=== PATIENT | male | born 1980 | race Caucasian/White ===

== ENCOUNTER → 2017-08-31 | Outpatient (CLI) | payer OTHER ==
--- NOTE | 2017-08-31 15:39 | DIAGNOSTIC IMAGING REPORT ---
ABDOMEN ULTRASOUND FOR HERNIA CLINICAL HISTORY: K40.90 Direct inguinal hernia. Right inguinal pain. COMPARISON STUDY: None. FINDINGS: There is a small fat-containing nonreducible right inguinal hernia. There is no bowel or fluid identified within the hernia sac. Multiple benign-appearing right inguinal lymph nodes are noted. IMPRESSION: A small fat-containing nonreducible right inguinal hernia. Electronically signed by: Jin Gonzalez M.D. 08/31/2017 3:38 PM Dictated Date/Time: 08/31/2017 3:37 PM
== END | disposition home or self-care (01) ==
LOC: C.ULTR 15:04
PROVIDERS: ATTEND Neuromusculoskeletal Medicine & OMM
DX: K40.90 Unilateral inguinal hernia, without obstruction or gangrene, not specified as recurrent (principal)